=== PATIENT | female | born 1965 | race Caucasian/White ===

== ENCOUNTER 2017-06-20 13:05 | Emergency (ER) | payer MEDICAID ==
[~2017-06-20] VITALS: Ht 175.3 cm; Wt 93.8 kg
[2017-06-20] MEDS ORDERED: PLEASE ENTER ALLERGIES MC SCH (14:00)
[2017-06-20] MEDS ORDERED: KETOROLAC 30 MG/1 ML IM ONE (14:00)
[2017-06-20] MEDS ORDERED: KETOROLAC 30 MG/1 ML ONE (14:20)
[2017-06-20 15:41] VITALS: BP 136/96
== END 2017-06-20 16:06 | disposition home or self-care (01) ==
LOC: ED 15:00
DX: G89.29 Other chronic pain (principal); M25.561 Pain in right knee; I10 Essential (primary) hypertension
CPT/HCPCS: 73564; 96372; 99284; J1885

== ENCOUNTER 2017-12-01 10:01 | Emergency (ER) | payer MEDICAID ==
[~2017-12-01] VITALS: Ht 175.3 cm; Wt 90.9 kg
[2017-12-01 10:03] VITALS: BP 134/88
[2017-12-01] MEDS ORDERED: ACETAMINOPHEN 325 MG TABLET ONE (11:35)
[2017-12-01 12:06] LABS: MICROSCOPIC AUTO
[2017-12-01] MEDS ORDERED: ACETAMINOPHEN 325 MG TABLET PO ONE (12:30)
== END 2017-12-01 13:00 | disposition home or self-care (01) ==
LOC: ED 12:14
DX: N81.6 Rectocele (principal); N81.11 Cystocele, midline; K59.00 Constipation, unspecified; I10 Essential (primary) hypertension; F17.200 Nicotine dependence, unspecified, uncomplicated; Z90.710 Acquired absence of both cervix and uterus
CPT/HCPCS: 81001; 99283

== ENCOUNTER 2018-01-24 05:19 | Day surgery (SDC) | payer MEDICAID ==
[2018-01-17 13:10] VITALS: BP 106/77
[~2018-01-24] VITALS: Ht 175.3 cm; Wt 87.5 kg
[~2018-01-24 05:19] MED LIST: FENO160T PO; LISI1TAB3 PO
[2018-01-24] MEDS ORDERED: LACTATED RINGERS 1,000 ML IV SCH (05:52)
[2018-01-24 05:53] VITALS: BP 106/77
[2018-01-24] MEDS ORDERED: LIDOCAINE-MPF 1%, 2ML INFIL ONE (06:00)
[2018-01-24] MEDS ORDERED: BUPIVACAINE 0.25% ONE (06:47)
[2018-01-24] MEDS ORDERED: BACITRACIN 50,000 UNIT ONE (06:48)
[2018-01-24] MEDS ORDERED: EPINEPHRINE 1 MG/ML, 1ML ONE (06:48)
[2018-01-24] MEDS ORDERED: MIDAZOLAM 1 MG/ML, 2ML ONE (06:59)
[2018-01-24] MEDS ORDERED: FENTANYL PF 100 MCG/2ML ONE (07:00)
[2018-01-24] MEDS ORDERED: NEOMY/POLYMYXIN B GU IRR. 1 ML IRRIG ONE (07:23)
[2018-01-24] MEDS ORDERED: KETOROLAC 30 MG/1 ML ONE (07:29)
[2018-01-24] MEDS ORDERED: ACETAMINOPHEN 500 MG TABLET PO ONE (07:30)
[2018-01-24] MEDS ORDERED: FENTANYL PF 100 MCG/2ML IV PRN (07:30)
[2018-01-24] MEDS ORDERED: GABAPENTIN 300 MG CAPSULE PO ONE (07:30)
[2018-01-24] MEDS ORDERED: hydrALAzine 20 MG/ML, 1ML IV PRN (07:30)
[2018-01-24] MEDS ORDERED: ONDANSETRON 2MG/ML, 2ML IV PRN (07:30)
[2018-01-24] MEDS ORDERED: LABETALOL 5MG/ML, 20ML IV PRN (07:30)
[2018-01-24] MEDS ORDERED: DIPHENHYDRAMINE 50 MG/ML, 1ML IVPush PRN (07:30)
[2018-01-24] MEDS ORDERED: HYDROmorphone 1 MG/ML, 1ML IV PRN (07:30)
[2018-01-24] MEDS ORDERED: SUCCINYLCHOLINE 20 MG/ML, 10ML ONE (07:46)
[2018-01-24] MEDS ORDERED: ROCURONIUM 10MG/ML,5ML ONE (07:46)
[2018-01-24] MEDS ORDERED: PROPOFOL 10 MG/ML, 20ML ONE (07:46)
[2018-01-24] MEDS ORDERED: CEFAZOLIN 1,000 MG ONE (07:46)
[2018-01-24] MEDS ORDERED: NEOSTIGMINE 1 MG/ML, 10ML ONE (07:46)
[2018-01-24] MEDS ORDERED: GLYCOPYRROLATE 0.2MG/1ML, 5ML ONE (07:46)
[2018-01-24] MEDS ORDERED: ONDANSETRON 2MG/ML, 2ML ONE (07:46)
[2018-01-24] MEDS ORDERED: DEXAMETHASONE 4 MG/ML, 1ML ONE (07:46)
[2018-01-24] MEDS ORDERED: FUROSEMIDE 20 MG/2 ML ONE (07:52)
[2018-01-24] MEDS ORDERED: OXYcodone 5 MG/5 ML ORAL.SOL UDC PO PRN (08:30)
[2018-01-24] MEDS ORDERED: OXYcodone/APAP 5/325MG TABLET PO PRN (10:00)
[2018-01-24] MEDS ORDERED: HYDROcodone/APAP 5/325 TABLET PO PRN (10:00)
[2018-01-24] MEDS ORDERED: IBUPROFEN 600 MG TABLET PO PRN (10:00)
[2018-01-24] MEDS ORDERED: OXYcodone IR 5MG TABLET ONE (10:06)
== END 2018-01-24 10:55 | disposition home or self-care (01) ==
LOC: OUT 05:19
PROVIDERS: ATTEND Obstetrics & Gynecology Female Pelvic Medicine and Reconstructive Surgery
DX: N81.89 Other female genital prolapse (principal); N39.46 Mixed incontinence; N94.10 Unspecified dyspareunia; N81.10 Cystocele, unspecified; N81.6 Rectocele; E78.00 Pure hypercholesterolemia, unspecified; F17.210 Nicotine dependence, cigarettes, uncomplicated; I10 Essential (primary) hypertension; Z90.710 Acquired absence of both cervix and uterus; Z98.890 Other specified postprocedural states; Z98.51 Tubal ligation status; Z72.89 Other problems related to lifestyle; Z79.899 Other long term (current) drug therapy
CPT/HCPCS: 57265; 57282; 57288; C1771; J0171; J0330; J0690; J1100; J1885; J1940; J2250; J2405; J2704; J2710; J3010; J3490; J7120

== ENCOUNTER 2018-06-08 12:25 | Emergency (ER) | payer MEDICAID ==
[~2018-06-08] VITALS: Ht 175.3 cm; Wt 87.9 kg
[2018-06-08 12:27] VITALS: BP 151/102
[2018-06-08] MEDS ORDERED: KETOROLAC 30 MG/1 ML IM ONE (13:00)
[2018-06-08] MEDS ORDERED: KETOROLAC 30 MG/1 ML ONE (13:02)
== END 2018-06-08 14:22 | disposition home or self-care (01) ==
LOC: ED 12:38
DX: M77.9 Enthesopathy, unspecified (principal); I10 Essential (primary) hypertension; F17.200 Nicotine dependence, unspecified, uncomplicated; Z90.710 Acquired absence of both cervix and uterus; X50.1XXA Overexertion from prolonged static or awkward postures, initial encounter; Y93.89 Activity, other specified; Y92.009 Unspecified place in unspecified non-institutional (private) residence as the place of occurrence of the external cause; Y99.8 Other external cause status
CPT/HCPCS: 29125; 73110; 96372; 99283; J1885

== ENCOUNTER 2020-09-19 12:04 | Outpatient (CLI) | payer MEDICAID ==
[~2020-09-19 12:04] MED LIST changes: +LISI1TAB23 PO; -LISI1TAB3 PO
== END 2020-09-19 23:59 | disposition home or self-care (01) ==
LOC: CFH 12:04
PROVIDERS: ATTEND Nurse Practitioner Primary Care
DX: N64.52 Nipple discharge (principal)
CPT/HCPCS: 76642; 77062; 77066; G0279

== ENCOUNTER → 2020-10-24 | Outpatient (CLI) | payer MEDICAID ==
[~2020-10-24] MED LIST changes: +ATOR40TA78 PO; +CHOL10003 PO; +LISI5TAB7 PO
[2020-10-24 15:11] LABS: CALCIUM 9.2 mg/dL (8.5-10.1); CHLORIDE 110 mmol/L (98-107)
[2020-10-24 15:17] LABS: ALANINE AMINOTRANSFERASE 46 U/L (12-78); ALKALINE PHOSPHATASE 61 U/L (45-117); ANION GAP 5 mmol/L (5-15); BILIRUBIN,TOTAL 0.4 mg/dL (0.2-1.0); TOTAL PROTEIN 7.2 g/dL (6.4-8.2)
== END | disposition home or self-care (01) ==
LOC: STAR 13:56
PROVIDERS: ATTEND Surgery
DX: Z01.812 Encounter for preprocedural laboratory examination (principal); N63.20 Unspecified lump in the left breast, unspecified quadrant; Z20.822 Contact with and (suspected) exposure to COVID-19
CPT/HCPCS: 36415; 80053; U0003; U0005

== ENCOUNTER 2020-10-28 09:17 | Day surgery (SDC) | payer MEDICAID ==
[~2020-10-28] VITALS: Ht 175.3 cm; Wt 92.6 kg
[~2020-10-28 09:17] MED LIST changes: +BUPIVACAINE/PF 0.25% ONE
[2020-10-28 10:01] VITALS: BP 160/99
[2020-10-28] MEDS ORDERED: CHLORHEXIDINE 15 ML UDC ONE (10:07)
[2020-10-28] MEDS ORDERED: CHLORHEXIDINE 15 ML UDC PO ONE (10:30)
[2020-10-28] MEDS ORDERED: LACTATED RINGERS 1,000 ML IV SCH (10:30)
[2020-10-28] MEDS ORDERED: FENTANYL PF 100 MCG/2ML ONE (10:36)
[2020-10-28] MEDS ORDERED: MIDAZOLAM 1 MG/ML, 2ML ONE (10:37)
[2020-10-28] MEDS ORDERED: CEFAZOLIN 1,000 MG ONE (10:39)
[2020-10-28] MEDS ORDERED: PROPOFOL 10 MG/ML, 20ML ONE (10:39)
[2020-10-28] MEDS ORDERED: ONDANSETRON 2MG/ML, 2ML ONE (10:39)
[2020-10-28] MEDS ORDERED: DEXAMETHASONE 4 MG/ML, 1ML ONE (10:39)
[2020-10-28] MEDS ORDERED: KETOROLAC 30 MG/1 ML ONE (10:43)
[2020-10-28] MEDS ORDERED: BUPIVACAINE/PF 0.25% INFIL ONE (10:51)
[2020-10-28] MEDS ORDERED: FENTANYL PF 100 MCG/2ML IV PRN (11:00)
[2020-10-28] MEDS ORDERED: OXYcodone 5 MG/5 ML ORAL.SOL UDC PO PRN (11:00)
[2020-10-28] MEDS ORDERED: PROMETHAZINE 25 MG/ML, 1ML IVPush PRN (11:00)
[2020-10-28] MEDS ORDERED: ACETAMINOPHEN 325 MG TABLET PO PRN (11:00)
[2020-10-28] MEDS ORDERED: HYDROmorphone 1 MG/ML, 1ML INJ IVPush PRN (11:00)
[2020-10-28] MEDS ORDERED: HYDROcodone/APAP 7.5-325MG/15ML UDC PO PRN (11:00)
[2020-10-28] MEDS ORDERED: ONDANSETRON 2MG/ML, 2ML IVPush PRN (11:00)
[2020-10-28] MEDS ORDERED: MEPERIDINE/PF 25MG/0.5ML IVPush PRN (11:00)
[2020-10-28] MEDS ORDERED: ACETAMINOPHEN 325 MG TABLET ONE (11:21)
[2020-10-28] MEDS ORDERED: OXYcodone 5 MG/5 ML ORAL.SOL UDC ONE (11:21)
== END 2020-10-28 13:00 | disposition home or self-care (01) ==
LOC: OUT 09:17
PROVIDERS: ATTEND Surgery
DX: N64.52 Nipple discharge (principal); N60.42 Mammary duct ectasia of left breast; I10 Essential (primary) hypertension; E78.2 Mixed hyperlipidemia; E55.9 Vitamin D deficiency, unspecified; Z79.899 Other long term (current) drug therapy; Z87.891 Personal history of nicotine dependence; Z98.890 Other specified postprocedural states; Z83.42 Family history of familial hypercholesterolemia; Z82.49 Family history of ischemic heart disease and other diseases of the circulatory system; Z83.3 Family history of diabetes mellitus; Z82.3 Family history of stroke
CPT/HCPCS: 19120; 88305; J0690; J1100; J1885; J2250; J2405; J2704; J3010; J7120